=== PATIENT | female | born 2000 | race Hispanic/Latino ===

== ENCOUNTER 2019-02-14 23:28 | Emergency (ER) | payer SELFPAY ==
[2019-02-15] MEDS ORDERED: Ondansetron PF 4 MG/2 ML Vial ONE (00:20)
[2019-02-15 00:26] LABS: BHCG - Serum Negative (NEGATIVE); Pregs Control Background? CLEAR/WHITE (CLR/WHITE); Pregs Control Bar Appear? YES (CONTROL BAR)
[2019-02-15 00:30] LABS: Hemoglobin 12.9 g/dL (12.0-16.0); Mean Corpuscular HGB CONC 34.5 g/dL (32.0-36.0); Mean Corpuscular Hemoglobin 29.6 pg (25.0-35.0); Mean Corpuscular Volume 85.9 fL (78.0-98.0); RBC Distribution Width 11.3 % (11.5-14.5); Red Blood Cell (RBC) Count 4.36 mill/uL (4.00-5.20); White Blood Cell (WBC) Count 4.2 thou/uL (4.8-10.8)
[2019-02-15 00:41] LABS: ALT (SGPT) 73 U/L (8-55); AST (SGOT) 59 U/L (5-30); Albumin 4.1 g/dL (3.5-5.0); Alkaline Phosphatase 63 U/L (40-150); Anion Gap 13 mmol/L (10-20); BUN (Urea Nitrogen) 7 mg/dL (8.4-21.0); Bilirubin, Total 0.5 mg/dL (0.2-1.2); Calc. Creatinine Clearance 0 mL/min (70-130); Calcium 8.8 mg/dL (7.8-10.44); Carbon Dioxide 21 mmol/L (22-29); Chloride 104 mmol/L (98-107); Estimated GFR-MDRD 84; Globulin 3.2 g/dL (2.4-3.5); Glucose 106 mg/dL (70-105); Lipase 26 U/L (8-78); Potassium 3.3 mmol/L (3.5-5.1); Protein, Total 7.3 g/dL (6.0-8.3); Sodium 135 mmol/L (136-145)
[2019-02-15 01:02] LABS: Bilirubin Negative (Negative); Blood, Urine Trace (Negative); Clarity Turbid (Clear); Glucose, Urine (Dipstick) Normal (Negative); Leukocyte 500 Leu/uL (Negative); Nitrite Negative (Negative); Protein, Urine (Dipstick) 30 mg/dL (Neg-Trace); Transitional Epithelial 0-3 HPF (None Seen); Urobilinogen 6 mg/dL (Less than 2); WBC/HPF Greater than 50 HPF (0-3)
[2019-02-15 01:04] LABS: Bacteria/HPF 1+ HPF (None Seen)
[2019-02-15 01:14] LABS: #Monocytes 0.3 thou/uL (0.11-0.59); #Neutrophils 1.9 thou/uL (1.40-6.50); %Basophils 0.5 % (0.0-1.0); %Eosinophils 0.3 % (0.0-10.0); %Lymphocytes 47.5 % (28.0-48.0); %Monocytes 6.7 % (0.0-4.0); %Neutrophils 45.1 % (31.0-61.0); Mean Platelet Volume 9.5 fL (7.4-10.4); Platelet Count 115 thou/uL (130-400)
[2019-02-15 01:15] LABS: Large Platelets SLIGHT; MDiff Complete? YES; Platelet Morphology Comment Appears Decreased
[2019-02-15] MEDS ORDERED: cefTRIAXone\\ROCEPHIN 1 GM VIAL ONE (01:27)
== END 2019-02-15 02:22 | disposition home or self-care (01) ==
LOC: ERS 23:28
DX: N39.0 Urinary tract infection, site not specified (principal); J45.909 Unspecified asthma, uncomplicated
CPT/HCPCS: 36415; 80053; 81003; 81015; 83690; 84703; 85025; 96361; 96365; 96375; J0696; J2405